=== PATIENT | male | born 1975 | race Caucasian/White ===

== ENCOUNTER 2022-07-22 05:09 | Emergency (ER) | payer BC ==
[~2022-07-22] VITALS: Ht 170.2 cm; Wt 85.0 kg
[2022-07-22] MEDS ORDERED: CYCLOBENZAPRINE10 MG PO (06:36)
[2022-07-22] MEDS ORDERED: NAPROXEN500 MG PO (06:36)
[2022-07-22 06:39] VITALS: BP 134/67
== END 2022-07-22 06:44 | disposition home or self-care (01) | DRG 563 ==
LOC: ED 05:09
DX: S39.012A Strain of muscle, fascia and tendon of lower back, initial encounter (principal); X50.0XXA Overexertion from strenuous movement or load, initial encounter; M62.830 Muscle spasm of back

== ENCOUNTER 2022-08-18 16:49 | Emergency (ER) | payer BC ==
[~2022-08-18] VITALS: Ht 170.2 cm; Wt 84.8 kg
[2022-08-18] VITALS (8 sets, daily range): BP systolic 124–160; BP diastolic 79–89
[~2022-08-18 16:49] MED LIST: CYCLOBENZAPRINE10 MG PO; NAPROXEN500 MG PO
[2022-08-18] MEDS ORDERED: BACTRIM DS1 TAB PO (17:20)
[2022-08-18] MEDS ORDERED: OMNI-PAC300 MG PO (17:20)
== END 2022-08-18 18:50 | disposition home or self-care (01) | DRG 603 ==
LOC: ED 16:49
DX: L03.113 Cellulitis of right upper limb (principal); F17.210 Nicotine dependence, cigarettes, uncomplicated

== ENCOUNTER 2022-09-10 14:23 | Emergency (ER) | payer BC ==
[~2022-09-10] VITALS: Ht 170.2 cm; Wt 185.0 kg
[2022-09-10] VITALS (12 sets, daily range): BP systolic 103–122; BP diastolic 66–84
[~2022-09-10 14:23] MED LIST changes: +BACTRIM DS1 TAB PO; +OMNI-PAC300 MG PO
[2022-09-10 15:12] LABS: BASO% 0.5 % (0-3); EOS% 0.5 % (0-8); HEMATOCRIT 41.6 % (39.0-50.0); IMMATURE GRANULOCYTES 0.1 % (0.0-5.0); LYMPH% 12.8 % (15-41); MEAN CORPUSCULAR HGB 30.6 pG CALC (26.0-32.0); MEAN CORPUSCULAR HGB CONC 33.7 g/dL CAL (32.0-36.0); MONO% 9.5 % (2-13); NEUT# 7.41 thou/uL (1.82-7.42); NEUT% 76.6 % (42-76); RED BLOOD COUNT 4.57 mill/uL (4.70-6.10); RED CELL DISTRI WIDTH 12.3 % (11.5-15.5)
[2022-09-10 15:28] LABS: ALBUMIN 4.2 g/dL (3.2-5.0); ALKALINE PHOSPHATASE 41 u/l (38-126); ANION GAP 14 (6-22 (CALC)); BILIRUBIN, TOTAL 0.8 mg/dL (0.2-1.3); BUN 14 mg/dL (9-20); BUN/CREATININE RATIO 16 (12-20 (CALC)); CARBON DIOXIDE 25 mmol/l (22-30); CHLORIDE 104 mmol/l (95-108); CREATININE 0.9 mg/dL (0.7-1.3); GFR FOR AFR.AMER. > 60 ML/MIN (>=60 (CALC)); GFR OTHER RACES > 60 ML/MIN (>=60 (CALC)); POTASSIUM 3.9 mmol/l (3.5-5.1); SGOT/AST 28 u/l (17-59); SODIUM 139 mmol/l (137-146); TOTAL PROTEIN 7.2 g/dL (6.3-8.2)
[2022-09-10] MEDS ORDERED: TRAMADOL HYDROC50 M1 PO (18:22)
[2022-09-10] MEDS ORDERED: KEFLEX500 MG PO (18:22)
== END 2022-09-10 18:42 | disposition home or self-care (01) | DRG 603 ==
LOC: ED 14:23
PROVIDERS: Nurse Practitioner
DX: L03.113 Cellulitis of right upper limb (principal)
CPT/HCPCS: Q9967

== ENCOUNTER 2022-09-12 08:11 | Observation (INO) | payer BC ==
[2022-09-12] VITALS (10 sets, daily range): BP systolic 103–127; BP diastolic 60–79
[~2022-09-12] VITALS: Ht 170.2 cm; Wt 84.0 kg
[~2022-09-12 08:11] MED LIST changes: +KEFLEX500 MG PO; +TRAMADOL HYDROC50 M1 PO
[2022-09-12 09:01] LABS: BASO% 0.5 % (0-3); HEMATOCRIT 41.4 % (39.0-50.0); HEMOGLOBIN 13.5 g/dl (14.0-18.0); IMMATURE GRANULOCYTES 0.1 % (0.0-5.0); LYMPH% 15.9 % (15-41); MEAN CELL VOLUME 93.9 fL CALC (80.0-100.0); MEAN CORPUSCULAR HGB 30.6 pG CALC (26.0-32.0); MEAN CORPUSCULAR HGB CONC 32.6 g/dL CAL (32.0-36.0); MONO% 12.1 % (2-13); NEUT# 5.93 thou/uL (1.82-7.42); NEUT% 68.4 % (42-76); RED BLOOD COUNT 4.41 mill/uL (4.70-6.10); RED CELL DISTRI WIDTH 12.4 % (11.5-15.5)
[2022-09-12 09:16] LABS: ALBUMIN 3.8 g/dL (3.2-5.0); ALKALINE PHOSPHATASE 46 u/l (38-126); ANION GAP 9 (6-22 (CALC)); BILIRUBIN, TOTAL 0.2 mg/dL (0.2-1.3); BUN 7 mg/dL (9-20); BUN/CREATININE RATIO 8 (12-20 (CALC)); C-REACTIVE PROTEIN 4.1 mg/dL (0-0.9); CARBON DIOXIDE 27 mmol/l (22-30); CHLORIDE 105 mmol/l (95-108); CREATININE 0.9 mg/dL (0.7-1.3); GFR FOR AFR.AMER. > 60 ML/MIN (>=60 (CALC)); GFR OTHER RACES > 60 ML/MIN (>=60 (CALC)); POTASSIUM 3.6 mmol/l (3.5-5.1); SGOT/AST 18 u/l (17-59); SODIUM 138 mmol/l (137-146); TOTAL PROTEIN 6.9 g/dL (6.3-8.2)
[2022-09-13 04:17] VITALS: BP 141/92
[2022-09-13 05:15] LABS: BASO% 0.7 % (0-3); EOS% 4.7 % (0-8); HEMATOCRIT 39.4 % (39.0-50.0); HEMOGLOBIN 12.6 g/dl (14.0-18.0); IMMATURE GRANULOCYTES 0.4 % (0.0-5.0); LYMPH% 25.4 % (15-41); MEAN CORPUSCULAR HGB 30.1 pG CALC (26.0-32.0); MONO% 12.8 % (2-13); NEUT# 3.83 thou/uL (1.82-7.42); RED BLOOD COUNT 4.19 mill/uL (4.70-6.10); RED CELL DISTRI WIDTH 12.3 % (11.5-15.5)
[2022-09-13 05:38] LABS: ALBUMIN 3.2 g/dL (3.2-5.0); ALKALINE PHOSPHATASE 36 u/l (38-126); ANION GAP 7 (6-22 (CALC)); BILIRUBIN, TOTAL 0.2 mg/dL (0.2-1.3); BUN 6 mg/dL (9-20); BUN/CREATININE RATIO 8 (12-20 (CALC)); CARBON DIOXIDE 26 mmol/l (22-30); CHLORIDE 107 mmol/l (95-108); CREATININE 0.8 mg/dL (0.7-1.3); GFR FOR AFR.AMER. > 60 ML/MIN (>=60 (CALC)); GFR OTHER RACES > 60 ML/MIN (>=60 (CALC)); POTASSIUM 4.4 mmol/l (3.5-5.1); SGOT/AST 25 u/l (17-59); SODIUM 136 mmol/l (137-146); TOTAL PROTEIN 6.1 g/dL (6.3-8.2)
[2022-09-13 06:42] VITALS: BP 134/85
[2022-09-13 14:56] VITALS: BP 132/79
[2022-09-13 19:32] VITALS: BP 136/79
[2022-09-14 03:46] VITALS: BP 131/86
[2022-09-14 05:20] LABS: HEMATOCRIT 41.6 % (39.0-50.0); HEMOGLOBIN 13.9 g/dl (14.0-18.0); MEAN CELL VOLUME 91.8 fL CALC (80.0-100.0); MEAN CORPUSCULAR HGB 30.7 pG CALC (26.0-32.0); MEAN CORPUSCULAR HGB CONC 33.4 g/dL CAL (32.0-36.0); RED BLOOD COUNT 4.53 mill/uL (4.70-6.10); RED CELL DISTRI WIDTH 12.1 % (11.5-15.5)
[2022-09-14 05:40] LABS: ALBUMIN 3.5 g/dL (3.2-5.0); ANION GAP 9 (6-22 (CALC)); BUN 11 mg/dL (9-20); BUN/CREATININE RATIO 13 (12-20 (CALC)); CARBON DIOXIDE 31 mmol/l (22-30); CHLORIDE 102 mmol/l (95-108); CREATININE 0.8 mg/dL (0.7-1.3); GFR FOR AFR.AMER. > 60 ML/MIN (>=60 (CALC)); GFR OTHER RACES > 60 ML/MIN (>=60 (CALC)); MAGNESIUM 2.3 mg/dL (1.6-2.3); POTASSIUM 3.9 mmol/l (3.5-5.1); SGOT/AST 25 u/l (17-59); SODIUM 138 mmol/l (137-146); TOTAL PROTEIN 6.8 g/dL (6.3-8.2)
[2022-09-14 05:41] LABS: ALKALINE PHOSPHATASE 56 u/l (38-126)
[2022-09-14 06:23] VITALS: BP 134/87
[2022-09-14 14:15] VITALS: BP 135/92
[2022-09-14 19:04] VITALS: BP 137/81
[2022-09-15 04:04] VITALS: BP 144/93
[2022-09-15 06:11] LABS: ALBUMIN 3.5 g/dL (3.2-5.0); ALKALINE PHOSPHATASE 39 u/l (38-126); ANION GAP 11 (6-22 (CALC)); BUN 11 mg/dL (9-20); BUN/CREATININE RATIO 14 (12-20 (CALC)); CARBON DIOXIDE 27 mmol/l (22-30); CHLORIDE 104 mmol/l (95-108); CREATININE 0.8 mg/dL (0.7-1.3); GFR FOR AFR.AMER. > 60 ML/MIN (>=60 (CALC)); GFR OTHER RACES > 60 ML/MIN (>=60 (CALC)); POTASSIUM 4.1 mmol/l (3.5-5.1); SGOT/AST 24 u/l (17-59); SODIUM 137 mmol/l (137-146); TOTAL PROTEIN 6.7 g/dL (6.3-8.2)
[2022-09-15 06:18] LABS: HEMATOCRIT 40.8 % (39.0-50.0); HEMOGLOBIN 13.6 g/dl (14.0-18.0); MEAN CELL VOLUME 90.3 fL CALC (80.0-100.0); MEAN CORPUSCULAR HGB 30.1 pG CALC (26.0-32.0); MEAN CORPUSCULAR HGB CONC 33.3 g/dL CAL (32.0-36.0); RED BLOOD COUNT 4.52 mill/uL (4.70-6.10); RED CELL DISTRI WIDTH 12.1 % (11.5-15.5)
[2022-09-15 06:27] LABS: BILIRUBIN, TOTAL 0.2 mg/dL (0.2-1.3)
[2022-09-15 06:44] VITALS: BP 142/89
[2022-09-15] MEDS ORDERED: VIBRAMYCIN100 M2 PO (09:49)
[2022-09-15] MEDS ORDERED: TRAMADOL HYDROC50 M1 PO (09:49)
== END 2022-09-15 11:01 | disposition home or self-care (01) | DRG 603 ==
LOC: ED 08:11 → ED-I 09:25 → ED 09:46 → MS2 09:47
PROVIDERS: Family Medicine; Internal Medicine; ADMIT Internal Medicine; ATTEND Internal Medicine
DX: L03.113 Cellulitis of right upper limb (principal); R93.6 Abnormal findings on diagnostic imaging of limbs; F17.200 Nicotine dependence, unspecified, uncomplicated; B95.61 Methicillin susceptible Staphylococcus aureus infection as the cause of diseases classified elsewhere
CPT/HCPCS: G0378; J0690